=== PATIENT | male | born 1975 | race Caucasian/White ===

== ENCOUNTER 2021-05-24 13:03 | Emergency (ER) | payer MEDICAID ==
[~2021-05-24] VITALS: Ht 172.7 cm; Wt 99.8 kg
[2021-05-24 13:07] VITALS: BP 203/129
--- NOTE | 2021-05-24 13:18 | NUR ---
MANOJ BAE EVALUATING PT IN CHAIR C
[2021-05-24] MEDS ORDERED: ACETAMINOPHEN EXTRA STRENGTH 500 MG TAB PO ONE (13:20)
[2021-05-24] MEDS ORDERED: amLODIPine 5 MG TAB PO ONE ×2 (13:20→14:35)
--- NOTE | 2021-05-24 13:28 | NUR ---
46/M chris COFFMAN for prebook, officer stating [facility] will not take patient due to high blood pressure. Patient reports history of hypertension but states he recently ran out of his medication and has been unable to get a refill. Denies chest pain, sob, headache, blurred vision, states no pain at this time, states feeling light headed. Patient alert and oriented x4, answering questions appropriately. Blood pressure 203/129 upon arrival to ED.
[2021-05-24] MEDS ORDERED: LISI-486 PO ×2 (14:21→16:49)
[2021-05-24] MEDS ORDERED: amLODIPine 5 MG TAB ONE (14:33)
[2021-05-24] MEDS ORDERED: hydrALAZINE 20 MG/ML VIAL IVP ONE (15:25)
--- NOTE | 2021-05-24 15:26 | NUR ---
PT AMBULATED TO BED 10
--- NOTE | 2021-05-24 15:51 | NUR ---
Labs collected and handed to computer laboratory technician.
[2021-05-24 16:01] LABS: BASOPHILS # (AUTO) 0.1 K/uL (0.00-0.22); BASOPHILS % (AUTO) 0.7 % (0.0-2.0); EOSINOPHILS % (AUTO) 0.5 % (0.0-4.0); HEMATOCRIT 49.9 % (36-52); HEMOGLOBIN 16.8 g/dL (12.0-18.0); LYMPHOCYTES % (AUTO) 23.3 % (20.5-51.1); MEAN CORPUSCULAR HEMOGLOBIN 30 pg (27-31); MEAN CORPUSCULAR HGB CONC 34 g/dL (33-37); MEAN CORPUSCULAR VOLUME 89.3 fL (80-94); MONOCYTES # (AUTO) 0.6 K/uL (0.8-1.0); MONOCYTES % (AUTO) 6.5 % (1.7-9.3); NEUTROPHILS # (AUTO) 6.1 K/uL (1.8-7.7); PLATELET COUNT (AUTO) 231 K/uL (140-450); RED BLOOD CELL COUNT(AUTO) 5.59 MIL/uL (4.20-6.10); WHITE BLOOD COUNT (AUTO) 8.8 K/uL (4.8-10.8)
[2021-05-24 16:17] LABS: ALBUMIN 4.2 g/dL (3.4-5.0); ANION GAP 15.8 (8-16); CARBON DIOXIDE 26.2 mmol/L (21-32); TOTAL BILIRUBIN 0.8 mg/dL (0.0-1.0)
[2021-05-24 16:52] VITALS: BP 174/98
--- NOTE | 2021-05-24 16:53 | NUR ---
PATIENT BIB [employer]. PATIENT EXAMINED BY MANOJ Hinds. PATIENT MEDICALLY CLEARED AND RELEASED IN CUSTODY IN STABLE CONDITION. ORIGINAL PRE-BOOK FORM GIVEN TO OFFICER [facility]. Given RX of Lisinopril.
== END 2021-05-24 16:53 ==
LOC: MED 13:03
DX: I10 Essential (primary) hypertension (principal)
CPT/HCPCS: 36415; 70450; 80053; 84484; 85025; 93005; 96374; 99285; J0360